=== PATIENT | male | born 1990 | race Caucasian/White ===

== ENCOUNTER 2023-11-24 10:45 | Emergency (ER) | payer OTHER ==
[~2023-11-24] VITALS: Ht 167.6 cm; Wt 84.8 kg
[2023-11-24 10:47] VITALS: BP 153/83; PULSE 82; RESP 18; TEMP 97.3; O2SAT 99
[2023-11-24 10:55] VITALS: BP 153/83; PULSE 82; RESP 18; TEMP 97.3; O2SAT 99
[2023-11-24] MEDS: ONDANSETRON 4 MG ODT PO ONE (11:15)
[2023-11-24] MEDS: IBUPROFEN 600 MG TAB PO ONE (11:15)
[2023-11-24] MEDS ORDERED: ACET-10509 PO (12:30)
[2023-11-24] MEDS ORDERED: ONDA-188 PO (12:30)
== END 2023-11-24 12:49 | disposition home or self-care (01) ==
LOC: MED 10:45
DX: S01.01XA Laceration without foreign body of scalp, initial encounter (principal); S06.0XAA Concussion with loss of consciousness status unknown, initial encounter; Z79.1 Long term (current) use of non-steroidal anti-inflammatories (NSAID); V89.2XXA Person injured in unspecified motor-vehicle accident, traffic, initial encounter; Y93.89 Activity, other specified; Y92.89 Other specified places as the place of occurrence of the external cause; Y99.8 Other external cause status
CPT/HCPCS: 99283; Q0162